=== PATIENT | male | born 1980 | race Caucasian/White ===

== ENCOUNTER 2023-09-19 19:40 | Emergency (ER) | payer OTHER, SELFPAY ==
[2023-09-19 19:46] VITALS: BP 145/102; PULSE 102; TEMP 38; O2SAT 94; BMI 35.3
--- NOTE | 2023-09-19 19:55 | XR_ITS ---
The [address] [address] Patient Name: LUNA ALARCON MRN: [id number] date: 1980 Sex: M Assigned Patient Location: ED.MAIN Current Patient Location: ER Accession/Order Number: [id number] Exam Date: 09/19/2023 20:20 Report Date: 09/19/2023 20:39 At the request of: RJ LAUREANO Procedure: XR chest 1V EXAM: XR chest 1V at 2017 hours HISTORY: fever COMPARISON: 03/05/2022 TECHNIQUE: AP upright portable chest X FINDINGS: The heart is not enlarged and the vasculature is not distended. There is been interval clearing of the left lung base. A subtle infiltrate in the infrahilar region on the right is suggested and may be present. The lungs otherwise clear. There is no evidence of an effusion or pneumothorax. The osseous structures are grossly intact. XR/XR chest 1V IMPRESSION: A subtle infiltrate in the infrahilar region on the right is suspected and may be present. There is been interval clearing of the left lung base. There is no other evidence of a focal infiltrate or cardiac decompensation. The overall appearance of the chest is otherwise unchanged. Electronically authenticated by: DANNA WALDROP Date: 09/19/2023 20:39
--- NOTE | 2023-09-19 20:01 | ED.NAVMDI1 ---
HPI - Nausea/Vomiting/Diarrhea General Chief complaint: Nausea/Vomiting/Diarrhea Stated complaint: Withdrawal symptoms Time Seen by Provider: 09/19/23 19:46 Source: patient Mode of arrival: walk-in Limitations: no limitations History of Present Illness HPI Narrative: polysubstance abuse. states he uses crack cocaine, heroin and fentanyl. Last use 09/16/23. Took first does of Suboxone today and now presents complaining of withdrawal symptoms. States he has had similar withdrawal symptoms in the past. Has been using drugs for more than 10 years. complains of chills, shakes and nausea. Feels like he is on fire MD elicited complaint: Reports nausea Related Data Allergies Allergy/AdvReac Type Severity Reaction Status Date / Time Sulfa (Sulfonamide AdvReac Mild Verified 09/19/23 19:45 Antibiotics) Review of Systems ROS Status of ROS 10 or more systems reviewed and unremarkable except as noted in history and below Exam Constitutional Vital Signs, click to edit/add: Last Vital Signs Temp 98.3 F 09/19/23 21:37 Pulse 86 09/19/23 22:12 Resp 18 09/19/23 22:12 BP 128/68 09/19/23 21:37 Pulse Ox 96 09/19/23 22:12 O2 Del Method Room Air 09/19/23 19:58 Common normals: no apparent distress (tremors/chills), average body habitus and oriented x3 Eye Common normals: EOMs intact bilaterally and conjunctivae normal Respiratory Common normals: normal respiratory effort, no retractions, no use of accessory muscles and clear to auscultation bilaterally Cardio Common normals: regular rate, regular rhythm, S1 normal heart sound, S2 normal heart sound and no murmurs GI Common normals: Normal to inspection, nondistended, normoactive bowel sounds present, soft to palpation and non-tender Extremity Common normals: normal to inspection and full ROM Neuro Common normals: oriented x3, CN's II-XII intact bilaterally and moves all extremities Psych Appearance: grossly normal Course Vital Signs Vital signs: Vital Signs Temperature 100.4 F 09/19/23 19:46 Pulse Rate 102 H 09/19/23 19:46 Respiratory Rate 20 09/19/23 19:46 Blood Pressure 145/102 H 09/19/23 19:46 Pulse Oximetry 94 L 09/19/23 19:46 Oxygen Delivery Method Room Air 09/19/23 19:46 Temperature 98.3 F 09/19/23 21:37 Pulse Rate 86 09/19/23 22:12 Respiratory Rate 18 09/19/23 22:12 Blood Pressure 128/68 09/19/23 21:37 Pulse Oximetry 96 09/19/23 22:12 Oxygen Delivery Method Room Air 09/19/23 19:58 MDM - Nausea/Vomiting/Diarrhea MDM Narrative Medical decision making narrative: patient presents complaining of opiate withdrawal. History of polysubstance abuse. states last use of fentanyl and heroin 3 days ago. Received a dose of Suboxone and states shortly afterwards he developed chills and tremors. Describe withdrawal symptoms similar to what he has had in the past treated with IV hydration, vistaril and ativan while here and is now feeling better. Lab Data Labs: Lab Results 09/19/23 09/19/23 Range/Units 19:03 21:04 WBC 7.7 (4.0-11.0) 10^3/uL RBC 5.13 (4.70-6.10) 10^6/uL Hgb 15.4 (14.0-18.0) g/dL Hct 45.3 (42.0-54.0) % MCV 88.3 (80.0-94.0) fL MCH 30.0 (25.9-34.0) pg MCHC 34.0 (29.9-35.2) g/dL RDW 12.0 (11.0-15.0) % Plt Count 115 L (150-450) 10^3/uL MPV 10.1 (9.5-13.5) fL Neut % (Auto) 72.9 (43.0-75.0) % Lymph % (Auto) 20.1 L (20.5-60.0) % Tyrrell % (Auto) 6.1 (1.7-12.0) % Eos % (Auto) 0.1 L (0.9-7.0) % Baso % (Auto) 0.4 (0.2-2.0) % Neut # (Auto) 5.6 (1.4-6.5) 10^3/uL Lymph # (Auto) 1.5 (1.2-3.8) 10^3/uL Tyrrell # (Auto) 0.5 (0.3-0.8) 10^3/uL Eos # (Auto) 0.0 (0.0-0.7) 10^3/uL Baso # (Auto) 0.0 (0.0-0.1) 10^3/uL Abs Immat Gran (auto) 0.03 (0.00-0.03) 10^3/uL Imm/Tot Granulo (auto) 0.4 (0.0-0.5) % ESR 15 (<=15) mm/hr Sodium 141 (136-145) mmol/L Potassium 3.8 (3.5-5.1) mmol/L Chloride 106 (98-107) mmol/L Carbon Dioxide 23.9 (21.0-32.0) mmol/L Anion Gap 14.9 BUN 5.0 L (7.0-18.0) mg/dL Creatinine 0.93 (0.70-1.30) mg/dL Est GFR ( Amer) >60 (>=60) Est GFR (Non-Af Amer) >60 (>=60) BUN/Creatinine Ratio 5.4 Glucose 114 H (74-106) mg/dL Lactate 1.4 (0.4-2.0) mmol/L Calcium 8.9 (8.5-10.1) mg/dL Total Bilirubin 1.2 H (0.2-1.0) mg/dL AST 115 H (15-37) U/L ALT 218 H (16-63) U/L Alkaline Phosphatase 88 (46-116) U/L C-Reactive Protein <0.50 (<=0.50) mg/dL Total Protein 7.4 (6.4-8.2) g/dL Albumin 3.8 (3.4-5.0) g/dL Globulin 3.6 g/dL Albumin/Globulin Ratio 1.1 Urine Color Yellow (YELLOW) Urine Clarity Clear (CLEAR) Urine pH >=9.0 A (5.0-9.0) Ur Specific [place] 1.020 (1.005-1.025) Urine Protein Negative (NEG/TRACE) mg/dL Urine Glucose (UA) Negative (NEGATIVE) mg/dL Urine Ketones >=80 A (NEGATIVE) mg/dL Urine Occult Blood Negative (NEGATIVE) Urine Nitrite Negative (NEGATIVE) Urine Bilirubin Negative (NEGATIVE) Urine Urobilinogen 2.0 A (0.2-1.0) EU/dL Ur Leukocyte Esterase Negative (NEGATIVE) Discharge Plan Discharge Stand Alone Forms: Portal Instructions Chief Complaint: Nausea/Vomiting/Diarrhea Clinical Impression: Opiate withdrawal Patient Disposition: Home, Self-Care Mode of Transportation: Private Vehicle Print Language: Ethiopian Instructions: Opioid Withdrawal (ED) Referrals: Physician,Non-Staff, MD [Primary Care Provider] - 1 week Discharge Date/Time: 09/19/23 23:29
[2023-09-19 20:09] LABS: Basophils Percent Auto 0.4 % (0.2-2.0); Eosinophils Percent Auto 0.1 % (0.9-7.0); Hematocrit 45.3 % (42.0-54.0); Hemoglobin 15.4 g/dL (14.0-18.0); Immature Granulocytes Abs Auto 0.03 10^3/uL (0.00-0.03); Immature Granulocytes Pct Auto 0.4 % (0.0-0.5); Lymphocytes Absolute Auto 1.5 10^3/uL (1.2-3.8); Lymphocytes Percent Auto 20.1 % (20.5-60.0); Mean Corpuscular Volume 88.3 fL (80.0-94.0); Mean Platelet Volume 10.1 fL (9.5-13.5); Monocytes Absolute Auto 0.5 10^3/uL (0.3-0.8); Monocytes Percent Auto 6.1 % (1.7-12.0); Neutrophils Absolute Auto 5.6 10^3/uL (1.4-6.5); Neutrophils Percent Auto 72.9 % (43.0-75.0); Platelet Count 115 10^3/uL (150-450); Red Blood Count 5.13 10^6/uL (4.70-6.10); White Blood Count 7.7 10^3/uL (4.0-11.0)
[2023-09-19] MEDS: PROMETHAZINE HCL 25 MG/ML VIAL IM (20:12)
[2023-09-19] MEDS: LORAZEPAM 2 MG/ML 1 ML VIAL 1 MG IV ×2 (20:12→21:54)
[2023-09-19] MEDS: 0.9 % SODIUM CHLORIDE 1,000 ML 999 ML IV (20:12)
[2023-09-19 20:16] LABS: Erythrocyte Sedimentation Rate 15 mm/hr (<=15)
[2023-09-19 20:36] VITALS: PULSE 74; O2SAT 95
[2023-09-19 20:39] LABS: Lactate/Lactic Acid 1.4 mmol/L (0.4-2.0)
[2023-09-19 20:46] LABS: Alanine Aminotransferase 218 U/L (16-63); Albumin Globulin Ratio 1.1; Albumin Level 3.8 g/dL (3.4-5.0); Alkaline Phosphatase 88 U/L (46-116); Anion Gap 14.9; Aspartate Amino Transferase 115 U/L (15-37); BUN Creatinine Ratio 5.4; Bilirubin Total 1.2 mg/dL (0.2-1.0); C Reactive Protein <0.50 mg/dL (<=0.50); Calcium 8.9 mg/dL (8.5-10.1); Carbon Dioxide 23.9 mmol/L (21.0-32.0); Chloride 106 mmol/L (98-107); Estimated GFR (African America >60 (>=60); Estimated GFR (Non-African Ame >60 (>=60); Globulin 3.6 g/dL; Glucose 114 mg/dL (74-106); Potassium 3.8 mmol/L (3.5-5.1); Sodium 141 mmol/L (136-145); Total Protein 7.4 g/dL (6.4-8.2)
[2023-09-19 21:13] LABS: Bilirubin Urine NEGATIVE (NEGATIVE); Blood Urine NEGATIVE (NEGATIVE); Clarity Urine CLEAR (CLEAR); Color Urine YELLOW (YELLOW); Glucose Urine UA NEGATIVE (NEGATIVE); Ketones Urine >=80 mg/dL (NEGATIVE); Leukocyte Esterase Urine NEGATIVE (NEGATIVE); Nitrite Urine NEGATIVE (NEGATIVE); Protein Urine NEGATIVE (NEG/TRACE); pH Urine >=9.0 (5.0-9.0)
[2023-09-19 21:15] LABS: Urine Microscopic Indicated NO
[2023-09-19 21:37] VITALS: BP 128/68; PULSE 74; TEMP 36.8; O2SAT 95
[2023-09-19] MEDS: HYDROXYZINE PAMOATE 25 MG CAPSULE 100 MG PO (21:53)
[2023-09-19 22:12] VITALS: PULSE 86; O2SAT 96
== END 2023-09-19 23:29 | disposition home or self-care (01) ==
PROVIDERS: Emergency Provider Internal Medicine; Family Provider Family Medicine
DX: F11.23 Opioid dependence with withdrawal (principal)
CPT/HCPCS: 36415; 71045; 80053; 81003; 83605; 85025; 85652; 86140; 96361; 96372; 96374; 96376; 99285